=== PATIENT | male | born 1960 | race Caucasian/White ===

== ENCOUNTER 2020-01-07 11:42 | Observation (INO) | payer MEDICAID ==
[~2020-01-07] VITALS: Ht 185.4 cm; Wt 90.0 kg
[2020-01-07] MEDS: SODIUM CHLORIDE 0.9% 1,000 ML IV SCH ×2 (13:01→21:01)
[2020-01-07] MEDS ORDERED: LEVO150T PO (13:11)
[2020-01-07] MEDS ORDERED: CARV6.252 PO (13:11)
[2020-01-07] MEDS ORDERED: LISI5TAB7 PO (13:11)
[2020-01-07] MEDS ORDERED: EPLE25TA4 PO (13:11)
[2020-01-07 13:14] VITALS: BP 151/91
[2020-01-07 13:32] LABS: BASOPHILS # (AUTO) 0.06 x10^3/uL (0-0.1); BASOPHILS % (AUTO) 1 % (0-1); EOSINOPHILS # (AUTO) 0.12 x10^3/uL (0-0.4); EOSINOPHILS % (AUTO) 2 % (1-7); LYMPHOCYTES # (AUTO) 1.93 x10^3/uL (1-3.4); LYMPHOCYTES % (AUTO) 26 % (22-44); MD NO; MEAN CORPUSCULAR HEMOGLOBIN 29.7 pg (27.5-34.5); MEAN CORPUSCULAR HGB CONC 32.8 g/dL (33.2-36.2); MEAN PLATELET VOLUME 9.6 fL (7.4-10.4); MONOCYTES # (AUTO) 0.49 x10^3/uL (0.2-0.8); MONOCYTES % (AUTO) 7 % (2-9); NEUTROPHILS # (AUTO) 4.76 x10^3/uL (1.8-6.8); NEUTROPHILS % (AUTO) 65 % (42-75); PLATELET COUNT 153 x10^3/uL (130-400); RED CELL DISTRIBUTION WIDTH 13.3 % (9.4-14.8)
[2020-01-07 13:41] LABS: ANION GAP 3 mmol/L (5-15); CALCIUM 8.9 mg/dL (8.5-10.1); CHLORIDE 113 mmol/L (98-107); CREATININE 0.99 mg/dL (0.7-1.3)
[2020-01-07] MEDS ORDERED: PROPOFOL 10 MG/ML, 20ML ONE ×3 (14:08→15:45)
[2020-01-07] MEDS ORDERED: MIDAZOLAM 1 MG/ML, 5ML ONE (14:17)
[2020-01-07] MEDS ORDERED: FENTANYL PF 250 MCG/5ML ONE ×2 (14:17→14:43)
[2020-01-07] MEDS ORDERED: LIDOCAINE 1%, 20ML ONE (14:17)
[2020-01-07] MEDS ORDERED: MIDAZOLAM 1 MG/ML, 2ML ONE (14:42)
[2020-01-07] MEDS ORDERED: ISOPROTERENOL 0.2MG/ML, 5ML ONE (15:37)
[2020-01-07] MEDS ORDERED: ONDANSETRON 2MG/ML, 2ML ONE ×2 (15:45→17:30)
[2020-01-07] MEDS ORDERED: DEXAMETHASONE 4 MG/ML, 1ML ONE (15:45)
[2020-01-07] MEDS ORDERED: SUCCINYLCHOLINE 20 MG/ML, 10ML ONE (15:45)
[2020-01-07] MEDS ORDERED: PHENYLEPHRINE 10 MG/ML ONE (15:45)
[2020-01-07] MEDS ORDERED: LABETALOL 5MG/ML, 20ML IV PRN (17:00)
[2020-01-07] MEDS ORDERED: MEPERIDINE/PF 25MG/0.5ML IVPush PRN (17:00)
[2020-01-07] MEDS ORDERED: EPHEDRINE 50 MG/ML, 1ML IVPush PRN (17:00)
[2020-01-07] MEDS ORDERED: ONDANSETRON 2MG/ML, 2ML IVPush PRN (17:00)
[2020-01-07] MEDS ORDERED: FENTANYL PF 100 MCG/2ML IV PRN (17:00)
[2020-01-07] MEDS ORDERED: hydrALAzine 20 MG/ML, 1ML IV PRN (17:00)
[2020-01-07] MEDS ORDERED: ACETAMINOPHEN 325 MG TABLET PO PRN (17:00)
[2020-01-07] MEDS ORDERED: OXYcodone 5 MG/5 ML ORAL.SOL UDC PO PRN (17:00)
[2020-01-07] MEDS ORDERED: HYDROmorphone 1 MG/ML, 1ML INJ IVPush PRN (17:00)
[2020-01-07] MEDS ORDERED: PROMETHAZINE 25 MG/ML, 1ML IVPush PRN (17:00)
[2020-01-07] MEDS ORDERED: FENTANYL PF 100 MCG/2ML ONE (17:30)
[2020-01-07] MEDS ORDERED: PROMETHAZINE 25 MG/ML, 1ML ONE (17:30)
[2020-01-07] MEDS ORDERED: HYDROmorphone 1 MG/ML, 1ML INJ ONE (17:30)
[2020-01-07 18:24] VITALS: BP 133/87
[2020-01-07 20:24] VITALS: BP 123/76
[2020-01-07] MEDS: CARVEDILOL 6.25 MG TABLET PO SCH (20:25)
[2020-01-08 01:24] VITALS: BP 109/66
[2020-01-08] MEDS: SODIUM CHLORIDE 0.9% 1,000 ML IV SCH (04:08)
[2020-01-08] MEDS ORDERED: LEVOTHYROXINE 150 MCG TABLET PO SCH (06:00)
[2020-01-08 07:20] VITALS: BP 111/71
[2020-01-08] MEDS: CARVEDILOL 6.25 MG TABLET PO SCH (08:08)
[2020-01-08] MEDS ORDERED: LISINOPRIL 5 MG TABLET PO SCH (09:00)
== END 2020-01-08 08:45 | disposition home or self-care (01) ==
LOC: CACL 11:42 → ORIP 16:44 → 5SO 18:22 → DCLOUNGE 01-08 08:35
PROVIDERS: ADMIT Internal Medicine Cardiovascular Disease; ATTEND Internal Medicine Cardiovascular Disease
DX: I42.8 Other cardiomyopathies (principal); I47.2 Ventricular tachycardia; I11.0 Hypertensive heart disease with heart failure; I50.9 Heart failure, unspecified; E03.9 Hypothyroidism, unspecified; Z87.891 Personal history of nicotine dependence; Z95.810 Presence of automatic (implantable) cardiac defibrillator; Z79.899 Other long term (current) drug therapy
CPT/HCPCS: 36415; 80048; 85025; 93005; 93620; 93623; 93642; C1730; C1894; G0378; J0330; J1100; J1170; J2250; J2370; J2405; J2550; J2704; J3010; J3490

== ENCOUNTER → 2020-03-21 | Outpatient (CLI) | payer MEDICAID ==
[~2020-03-21] MED LIST: CARV6.252 PO; EPLE25TA4 PO; LEVO150T PO; LISI5TAB7 PO
== END | disposition home or self-care (01) ==
LOC: CLISVCS 09:32
PROVIDERS: ATTEND Anesthesiology
DX: Z20.828 Contact with and (suspected) exposure to other viral communicable diseases (principal)
CPT/HCPCS: 87635

== ENCOUNTER 2020-03-26 05:59 | Observation (INO) | payer MEDICAID ==
[~2020-03-26] VITALS: Ht 185.4 cm; Wt 90.5 kg
[2020-03-26] MEDS ORDERED: SODIUM CHLORIDE 0.9% 1,000 ML IV SCH (06:30)
[2020-03-26 06:37] VITALS: BP 126/84
[2020-03-26] MEDS ORDERED: LIDOCAINE 1%, 20ML ONE (07:44)
[2020-03-26] MEDS ORDERED: FENTANYL PF 250 MCG/5ML ONE (07:53)
[2020-03-26] MEDS ORDERED: MIDAZOLAM 1 MG/ML, 2ML ONE (07:53)
[2020-03-26] MEDS ORDERED: CEFAZOLIN 1,000 MG ONE ×2 (08:19→11:28)
[2020-03-26] MEDS ORDERED: ACETAMINOPHEN 325 MG TABLET PO PRN (10:00)
[2020-03-26] MEDS ORDERED: Hold all anticoagulants for 24 hours (including Lovenox and Heparin) MC PRN (10:00)
[2020-03-26] MEDS ORDERED: OXYcodone 5 MG/5 ML ORAL.SOL UDC ONE (10:21)
[2020-03-26] MEDS ORDERED: FENTANYL PF 100 MCG/2ML ONE (10:26)
[2020-03-26] MEDS ORDERED: HYDROmorphone 1 MG/ML, 1ML INJ IVPush PRN (10:30)
[2020-03-26] MEDS ORDERED: MIDAZOLAM 1 MG/ML, 2ML IV PRN (10:30)
[2020-03-26] MEDS ORDERED: PROMETHAZINE 25 MG/ML, 1ML IVPush PRN (10:30)
[2020-03-26] MEDS ORDERED: hydrALAzine 20 MG/ML, 1ML IV PRN (10:30)
[2020-03-26] MEDS ORDERED: OXYcodone 5 MG/5 ML ORAL.SOL UDC PO PRN (10:30)
[2020-03-26] MEDS ORDERED: ONDANSETRON 2MG/ML, 2ML IVPush PRN (10:30)
[2020-03-26] MEDS ORDERED: ALBUTEROL SULFATE 2.5 MG/3 ML NPPB PRN (10:30)
[2020-03-26] MEDS ORDERED: EPHEDRINE 50 MG/ML, 1ML IVPush PRN (10:30)
[2020-03-26] MEDS ORDERED: MEPERIDINE/PF 25MG/0.5ML IVPush PRN (10:30)
[2020-03-26] MEDS ORDERED: DIPHENHYDRAMINE 50 MG/ML, 1ML IVPush PRN (10:30)
[2020-03-26] MEDS ORDERED: LABETALOL 5MG/ML, 20ML IV PRN (10:30)
[2020-03-26] MEDS ORDERED: PROMETHAZINE 12.5 MG SUPP PR PRN (10:30)
[2020-03-26] MEDS ORDERED: DIAZEPAM 5 MG/ML, 2ML IVPush PRN (10:30)
[2020-03-26] MEDS: FENTANYL PF 100 MCG/2ML IV PRN ×2 (10:31→10:43)
[2020-03-26] MEDS ORDERED: DEXAMETHASONE 4 MG/ML, 1ML ONE (11:28)
[2020-03-26] MEDS ORDERED: PROPOFOL 10 MG/ML, 20ML ONE (11:28)
[2020-03-26] MEDS ORDERED: ROCURONIUM 10MG/ML,5ML ONE (11:28)
[2020-03-26] MEDS ORDERED: SUGAMMADEX 200 MG/2 ML IVPush ONE (11:28)
[2020-03-26] MEDS ORDERED: ONDANSETRON 2MG/ML, 2ML ONE (11:28)
[2020-03-26 11:30] VITALS: BP 132/85
[2020-03-26 14:26] VITALS: BP 116/74
[2020-03-26] MEDS: HYDROcodone/APAP 5/325 TABLET PO PRN ×2 (14:30→22:52)
[2020-03-26] MEDS: CEFAZOLIN PMX 1GM/50ML 50 ML IVPB SCH (16:57)
[2020-03-26 20:58] VITALS: BP 122/69
[2020-03-26] MEDS: CARVEDILOL 6.25 MG TABLET PO SCH (22:42)
[2020-03-26] MEDS: SODIUM CHLORIDE FLUSH 10ML SYR IVF SCH (22:42)
[2020-03-27 02:26] VITALS: BP 100/55
[2020-03-27] MEDS: CEFAZOLIN PMX 1GM/50ML 50 ML IVPB SCH (02:29)
[2020-03-27] MEDS ORDERED: LEVOTHYROXINE 150 MCG TABLET PO SCH (06:00)
[2020-03-27 07:28] VITALS: BP 148/80
[2020-03-27] MEDS ORDERED: ACET325T26 PO (08:26)
[2020-03-27] MEDS ORDERED: HYDR-3237 PO (08:26)
[2020-03-27] MEDS ORDERED: LISINOPRIL 5 MG TABLET PO SCH (09:00)
[2020-03-27] MEDS ORDERED: EPLERENONE 50 MG TABLET PO SCH (09:00)
[2020-03-27] MEDS: CARVEDILOL 6.25 MG TABLET PO SCH (09:31)
[2020-03-27] MEDS: SODIUM CHLORIDE FLUSH 10ML SYR IVF SCH (09:31)
[2020-03-27] MEDS: HYDROcodone/APAP 5/325 TABLET PO PRN (09:37)
== END 2020-03-27 10:20 | disposition home or self-care (01) ==
LOC: CACL 05:59 → ORIP 09:59 → 5SO 11:36 → DCLOUNGE 03-27 10:08
PROVIDERS: ADMIT Internal Medicine Cardiovascular Disease; ATTEND Internal Medicine Cardiovascular Disease
DX: T82.110A Breakdown (mechanical) of cardiac electrode, initial encounter (principal); I44.7 Left bundle-branch block, unspecified; I42.8 Other cardiomyopathies; I47.2 Ventricular tachycardia; I49.01 Ventricular fibrillation; I11.0 Hypertensive heart disease with heart failure; I50.9 Heart failure, unspecified; F17.200 Nicotine dependence, unspecified, uncomplicated; Z79.899 Other long term (current) drug therapy; Z95.810 Presence of automatic (implantable) cardiac defibrillator
CPT/HCPCS: 33226; 36005; 36415; 71045; 71046; 86850; 86900; 93312; 93321; 93325; 96365; 96366; C1769; C1773; C1882; C1887; C1892; C1900; G0378; J0690; J1100; J2250; J2405; J2704; J3010; J3490; Q9967